=== PATIENT | female | born 1995 | race Caucasian/White ===

== ENCOUNTER 2019-09-13 14:18 | Emergency (ER) | payer OTHER ==
[~2019-09-13] VITALS: Ht 170.2 cm; Wt 56.0 kg
[2019-09-13 15:14] LABS: BASO # 0.1 10^3/uL (0.0-0.2); BASO % 0.6 % (0.0-1.0); EOS # 0.1 10^3/uL (0.0-0.5); EOS % 1.2 % (0.0-3.0); HEMATOCRIT 41.8 % (36.0-47.0); HEMOGLOBIN 14.6 g/dl (12.0-15.5); LYMPH # 1.6 10^3/uL (1.5-5.0); LYMPH % 19.1 % (24.0-44.0); MEAN CORPUSCULAR HEMOGLOBIN 31.5 pg (27.0-33.0); MEAN CORPUSCULAR HGB CONC 34.9 g/dl (32.0-36.5); MEAN CORPUSCULAR VOLUME 90.3 fl (80.0-96.0); MONO # 0.7 10^3/uL (0.0-0.8); MONO % 8.4 % (0.0-5.0); NEUTROPHILS % 70.5 % (36.0-66.0); PLATELET COUNT, AUTOMATED 274 10^3/uL (150-450); RED BLOOD COUNT 4.63 10^6/uL (4.00-5.40); WHITE BLOOD COUNT 8.5 10^3/uL (4.0-10.0)
[2019-09-13 15:37] LABS: ALBUMIN 4.1 GM/DL (3.2-5.2); ALT/SGPT 32 U/L (12-78); AMYLASE 49 U/L (25-115); BILIRUBIN,DIRECT 0.3 MG/DL (0.0-0.2); BILIRUBIN,TOTAL 0.8 MG/DL (0.2-1.0); BLOOD UREA NITROGEN 14 MG/DL (7-18); CALCIUM LEVEL 8.9 MG/DL (8.5-10.1); CARBON DIOXIDE LEVEL 27 MEQ/L (21-32); CHLORIDE LEVEL 106 MEQ/L (98-107); CREATININE FOR GFR 0.74 MG/DL (0.55-1.30); GLOMERULAR FILTRATION RATE > 60.0 (>60); GLUCOSE, FASTING 83 MG/DL (70-100); LIPASE 121 U/L (73-393); POTASSIUM SERUM 3.8 MEQ/L (3.5-5.1); SODIUM LEVEL 139 MEQ/L (136-145); TOTAL PROTEIN 7.7 GM/DL (6.4-8.2)
[2019-09-13] MEDS ORDERED: PEPC1TAB5 PO (15:44)
[2019-09-13] MEDS ORDERED: ONDA4TAB6 PO (15:44)
[2019-09-13 15:53] VITALS: BP 118/76
== END 2019-09-13 15:54 | disposition home or self-care (01) ==
LOC: M ED 14:18
DX: K30 Functional dyspepsia (principal); R11.2 Nausea with vomiting, unspecified

== ENCOUNTER 2020-10-23 07:51 | Inpatient (IN) | payer OTHER ==
[2020-10-23] VITALS (35 sets, daily range): BP systolic 95–136; BP diastolic 49–77
[~2020-10-23] VITALS: Ht 170.2 cm; Wt 75.5 kg
[~2020-10-23 07:51] MED LIST: ONDA4TAB6 PO; PEPC1TAB5 PO
[2020-10-23] MEDS ORDERED: PRENTAB9 PO (08:56)
[2020-10-23] MEDS ORDERED: LIDOCAINE 1% MDV 20ML VIAL INFIL PRN (10:15)
[2020-10-23] MEDS ORDERED: PENICILLIN G POTASSIUM IV 5 MU in D5W MINI-BAG PLUS 100 ML IV STA (10:15)
[2020-10-23] MEDS ORDERED: OXYTOCIN DRIP 30 UNITS in IV 1 EA IV PRN (10:15)
--- NOTE | 2020-10-23 11:04 | HPEPDOC ---
Obstetrical History & Physical General Date of Admission Oct 23, 2020 at 07:53 History of Present Illness Ms. Morejon is a 25yo at 39+4 who presents for an elective IOL. She den ied VB, LOF, decreased FM, regular painful contractions. She denied n/v/d, CP, SOB F/c, vaginal dc, urinary sx. Antepartum Course Pre- weight (lbs.): 130 Admission Weight (lbs.): 164 Change in Weight (lbs.): 34 Past Medical History Past Obstetrical History : Past Obstetrical History: Multigravida (G1 2013 40wk 7#4 spontaneous labor uncomplicated. G2 2016 39wk 7#5 spontaneous labor uncomplicated.) Past Medical History Medical History migraines with aura Surgical History: [place] teeth Family History Significant Family History: No pertinent family hx Social History Marital Status: Family situation: Spouse/partner home Psychosocial History: No pertinent psych hx * Smoker: non-smoker Alcohol: Denies Imunizations Tdap status: current Influenza Status: current Allergies Coded Allergies: No Known Allergies (Unverified , 09/13/19) Medications Scheduled No.137/Iron/Folic Acd ( Vitamin Tablet) 1 Each Tablet, 1 TAB PO DAILY Physical Examination Physical Examination GENERAL: Alert and oriented times three. BREAST: . ABDOMEN: Gravid and non-tender to touch. FETUS: Is vertex (VTX) by sterile vaginal examination (SVE), fetus is vertex (VTX) by US HEART RATE: Regular rate and rhythm. LUNGS: Clear to auscultation (CTA). EXTREMITIES: No edema. No clonus. Vital Signs/I&O Vital Signs Date Time Temp Pulse Resp B/P (MAP) Pulse Ox O2 Delivery O2 Flow Rate FiO2 10/23/20 09:23 77 18 122/68 (86) 10/23/20 08:16 97.7 Laboratory Data 24H LABS Laboratory Tests 2 10/23/20 08:04: Serology Scanned Report Hepatitis B Testing Urine Culture: No Growth Pertinent Laboratoy Data Blood Type: A+ RBC Antibody Screen: Negative HIV: Negative Hepatitis B: Negative Rapid Plasma Reagin: Nonreactive Rubella: Immune Varicella: Immune Chlamydia/Gonorrhea: Negative Group B Streptococcus: Positive Quad Screen Test: Negative (cfDNA) Glucose Tolerance Test: 70 Anatomy Ultrasound Placenta Location: Posterior Normal Anatomy: Yes Vaginal Examination Dilation: 2cm Effacement: 50% Station: -3 Cervical Consistency: Firm Cervical Position: Posterior Presentation: Cephalic presentation (by US) Assessment Variability: Moderate Accelerations: Positive Decelerations: None Tocometer Contractions: Yes Frequency: irregular Multi-drug resistant Organism: No history of MDRO Assessment/Plan Assessment Ms. Morejon is a 25yo at 39+4 who presents for an elective IOL. CAT I NST, reactive. Normal VS. SVE /-3. APC 1. GBS positive 2. migraines with aura Rh pos, GBS POS, EFW 3200, placenta posterior, PP 7#5 Plan Admit and orient, plan for PCN first then IOL with pitocin. Pl Sql Programmer and consent. Diet: regular x1 then clears Group B Streptococcus (GBS) positive - PCN ordered Labs and intravenous (IV) per unit protocol. Counseled on Pitocin and induction of labor (IOL). Lactated Ringers (LR): Bolus 1000cc then saline lock Anticipate [normal spontaneous delivery ()]. C-S as appropriate. BRANDYN JOHNSTON DO Oct 23, 2020 11:04
[2020-10-23] MEDS ORDERED: OXYTOCIN DRIP 30 UNITS in IV 1 EA IV SCH (11:05)
[2020-10-23] MEDS: LR 1,000 ML IV SCH ×2 (11:38→19:05)
[2020-10-23 12:03] LABS: HEMATOCRIT 36.7 % (36.0-47.0); HEMOGLOBIN 12.8 g/dl (12.0-15.5); MEAN CORPUSCULAR HEMOGLOBIN 33.2 pg (27.0-33.0); MEAN CORPUSCULAR HGB CONC 34.9 g/dl (32.0-36.5); MEAN CORPUSCULAR VOLUME 95.3 fl (80.0-96.0); PLATELET COUNT, AUTOMATED 173 10^3/uL (150-450); RED BLOOD COUNT 3.85 10^6/uL (4.00-5.40); WHITE BLOOD COUNT 10.1 10^3/uL (4.0-10.0)
[2020-10-23] MEDS: PENICILLIN G POTASSIUM IV 2.5 MU in IV 1 EA IV SCH ×3 (15:47→23:45)
--- NOTE | 2020-10-23 19:43 | IPNPDOC ---
Obstetrical Progress Note Date of Service Oct 23, 2020 Subjective To room for assessment of increased discomfort. Objective Vital Signs Date Time Temp Pulse Resp B/P (MAP) Pulse Ox O2 Delivery O2 Flow Rate FiO2 10/23/20 17:45 75 18 100/59 (73) 10/23/20 15:42 98.0 Assessment Variability: Moderate Accelerations: Positive Decelerations: None Heart Rate Tracing: Category I Tocometer Contractions: Yes Frequency: regular Sterile Vaginal Examination Dilation: 3 cm Effacement (%): 50% Station: -3 Cervical Consistency: Medium Cervical Position: Middle Postion/Presentation: Cephalic presentation (by exam) Assessment and Plan Status: Reassuring Anticipate: Vaginal Delivery Additional Comments CAT I NST, reassuring. SVE 350/-3. Pitocin at 8. Will continue to increase pitocin and reassess based on clinical indications. BRANDYN JOHNSTON DO Oct 23, 2020 19:43
[2020-10-23] MEDS ORDERED: FENTANYL 2MCG/ML ROPIVACAINE 0.2% IN 0.9% NACL 100ML IVBAG As Ordered ONE (19:49)
[2020-10-23] MEDS: ePHEDrine SULFATE 25 MG/5 ML(5MG/ML) SYRINGE IV PRN ×2 (20:31→20:36)
[2020-10-23] MEDS ORDERED: ePHEDrine SULFATE 25 MG/5 ML(5MG/ML) SYRINGE As Ordered ONE (20:34)
[2020-10-23] MEDS ORDERED: EPIDURAL/PCA KEYS XX PRN (20:45)
[2020-10-23] MEDS ORDERED: FENTANYL/ROPIVACAINE/NACL BAG 100 ML EPIDURAL SCH (20:45)
[2020-10-23] MEDS ORDERED: EPIDURAL COMMENT XX SCH (20:45)
[2020-10-23] MEDS ORDERED: REFRIGERATOR IV KEYS XX PRN (20:45)
[2020-10-23] MEDS ORDERED: NALOXONE INJ 0.4MG/1ML VIAL (J2310 PER 1MG) IV PRN (20:45)
[2020-10-23] MEDS ORDERED: LACTATED RINGER'S 1000 ML IV PRN (20:45)
[2020-10-23] MEDS ORDERED: diphenhydrAMINE 50MG/ML VIAL (J1200) IV PRN (20:45)
[2020-10-23] MEDS ORDERED: ONDANSETRON 4MG/2ML VIAL IV PRN (20:45)
--- NOTE | 2020-10-23 22:49 | IPNPDOC ---
Obstetrical Progress Note Date of Service Oct 23, 2020 Subjective Patient now has epidural. Objective Vital Signs Date Time Temp Pulse Resp B/P (MAP) Pulse Ox O2 Delivery O2 Flow Rate FiO2 10/23/20 22:15 76 18 119/58 (78) 10/23/20 21:13 98.0 Assessment Variability: Moderate Accelerations: Positive Decelerations: Early Heart Rate Tracing: Category I Tocometer Contractions: Yes Frequency: regular Sterile Vaginal Examination Dilation: 5 cm Effacement (%): 70% Station: -3 Cervical Consistency: Medium Cervical Position: Middle Postion/Presentation: Cephalic presentation (by exam) Assessment and Plan Status: Reassuring Anticipate: Vaginal Delivery Additional Comments CAT I NST reactive. Patient SROM at 2100. SVE now at 5/75/-3. Continue IOL with pitocin. BRANDYN JOHNSTON DO Oct 23, 2020 22:49
[2020-10-24] VITALS (9 sets, daily range): BP systolic 107–137; BP diastolic 50–75
[2020-10-24] MEDS ORDERED: DOCUSATE SODIUM 100MG CAPSULE PO PRN (00:55)
[2020-10-24] MEDS ORDERED: ACETAMINOPHEN TAB 650MG DOSE (2X325MG) PO PRN (00:55)
[2020-10-24] MEDS ORDERED: IBUPROFEN 600MG TAB PO PRN (00:55)
--- NOTE | 2020-10-24 00:57 | DNPDOC ---
[facility] Delivery Note Delivery Note DATE OF DELIVERY: 10/24/20 PREDELIVERY DIAGNOSIS: 39+5/7 weeks' gestation and labor. Elective induction of labor. GBS positive. History of episiotomy. POST DELIVERY DIAGNOSIS: Delivered. Same. First degree perineal laceration. Right labial laceration. PROCEDURE: Spontaneous vaginal delivery. RESIDENTIAL LEASING MANAGER: Dr. Cholo Johnston DO ANESTHESIA: epidural. ESTIMATED BLOOD LOSS: 100 mL. FINDINGS: Score 9/9, nuchal cord times 0. DELIVERY SUMMARY: Patient is a 25yo admitted at 39+4 for elective IOL. She was induced with pitocin and progressed to C/C/+3. With good maternal effort she delivered the head followed by the corpus without difficulty. The baby had spontaneous movement and cry. The cord clamping was delayed 60s. The cord was clamped and cut by the FOB. The cord gasses and blood were obtained. The placenta was delivered with mariah downward traction and was confirmed to be in-tact. Clots were cleared from the lower uterine segment and the uterus was firm. A first degree perineal laceration was repaired with 2-0 vicryl in the usual fashion. A right labial laceration was repaired with 3-0 vicryl rapid in a running fashion. The surgical sites were hemostatic. The vaginal bleeding was s cant and the uterus firm. The sponge, lap, and needle counts were correct. There were no complications. CHOLO JOHNSTON DO Oct 24, 2020 00:57
[2020-10-24 01:06] LABS: CORD GAS ABE A -8.3; CORD GAS ABE V -3.1; CORD GAS HCO3 A 20.5 MEQ/L; CORD GAS HCO3 V 22.6 MEQ/L; CORD GAS O2 SAT A 76.2 %; CORD GAS O2 SAT V 83.6 %; CORD GAS PCO2 A 55.3 mmHg; CORD GAS PCO2 V 42.9 mmHg; CORD GAS PH A 7.186 UNITS; CORD GAS PH V 7.339 UNITS; CORD GAS PO2 A 38.5 mmHg; CORD GAS SBC A 17.4 MEQ/L; CORD GAS SBC V 21.6 MEQ/L; CORD GAS TCO2 A 22.2 MEQ/L; CORD GAS TCO2 V 23.9 MEQ/L
[2020-10-24] MEDS: ACETAMINOPHEN 500 MG TAB PO PRN ×3 (06:10→19:30)
[2020-10-24] MEDS: PRENATAL VITAMINS CHEWABLE TABLET PO SCH (07:45)
[2020-10-24] MEDS: IBUPROFEN 800 MG TAB PO PRN (16:34)
[2020-10-25] MEDS: IBUPROFEN 800 MG TAB PO PRN ×2 (00:57→08:36)
[2020-10-25 06:00] VITALS: BP 110/68
--- NOTE | 2020-10-25 07:23 | OBDS ---
[facility] Obstetrical Discharge Sum. Obstetrical Discharge Summary Date: Oct 25, 2020 A/P, Post Course List any complications SUBJECT: Ms. Morejon is a 25yo after vaginal delivery at 39wk during elective induction of labor. She has been ambulating, voiding spontaneously without issue and tolerating regular diet. Breast feeding without issue. Reports lochia is like a normal period. Patient is ambulating well. Reports some cramping with . Denies any pain. Voiding and stooling without difficulty. Vitals within normal limits, afebrile, hemodynamically stable with no evidence of infection. APC 1. GBS positive 2. migraines with aura PLAN: 1. Discharge to home today. 2. Tylenol and Motrin for pain. 3. Encourage breast feeding and ambulation. 4. Minipill for contraception 5. Routine PP visit in 6 weeks in clinic. 6. Discussed return precautions at length and activity limitations to include pelvic rest. BRANDYN JOHNSTON DO Oct 25, 2020 07:23
--- NOTE | 2020-10-25 07:23 | IPNPDOC ---
Progress Note Date of Service: Oct 25, 2020 Day#: 1 Progress Note SUBJECT: Ms. Morejon is a 25yo PPD1 after at 39wk during elective induction of labor. She has been ambulating, voiding spontaneously without issue and tolerating regular diet. Breast feeding without issue. Reports lochia is like a normal period. Patient is ambulating well. Reports some cramping with . Denies any pain. Voiding and stooling without difficulty. APC 1. GBS positive 2. migraines with aura OBJECTIVE: VITAL SIGNS: Within normal limits, afebrile. Alert and oriented times three. No increased WOB Heart rate: non-tachycardic Abdomen: Fundus firm at U-2. Soft, NTTP. [Minimal] lochia. ASSESSMENT: Ms. Morejon is a 25yo PPD1 after at 39wk during elective induction of labor. Vitals within normal limits, afebrile, hemodynamically stable with no evidence of infection. PLAN: 1. Discharge to home today. 2. Tylenol and Motrin for pain. 3. Encourage breast feeding and ambulation. 4. Minipill for contraception 5. Routine PP visit in 6 weeks in clinic. 6. Discussed return precautions at length and activity limitations to include pelvic rest. VS, I&O, 24H, Fishbone Vital Signs/I&O Vital Signs Date Time Temp Pulse Resp B/P (MAP) Pulse Ox O2 Delivery O2 Flow Rate FiO2 10/25/20 06:00 97.3 50 14 110/68 (82) 98 Room Air BRANDYN JOHNSTON DO Oct 25, 2020 07:23
[2020-10-25] MEDS: PRENATAL VITAMINS CHEWABLE TABLET PO SCH (08:35)
== END 2020-10-25 10:45 | disposition home or self-care (01) | DRG 807 ==
LOC: M LDO 07:51 → M LDI 07:53 → M OBS 10-24 02:24
PROVIDERS: ADMIT Obstetrics & Gynecology; ATTEND Obstetrics & Gynecology
PROC: 3E033VJ Introduction of Other Hormone into Peripheral Vein, Percutaneous Approach (ICD-10-PCS; 2020-10-23)
PROC: 10E0XZZ Delivery of Products of Conception, External Approach (ICD-10-PCS; principal; 2020-10-24)
PROC: 0HQ9XZZ Repair Perineum Skin, External Approach (ICD-10-PCS; 2020-10-24)
DX: O99.824 Streptococcus B carrier state complicating childbirth (principal); Z37.0 Single live birth; Z3A.39 39 weeks gestation of pregnancy; O70.0 First degree perineal laceration during delivery